=== PATIENT | female | born 1990 | race Caucasian/White ===

== ENCOUNTER 2019-06-02 08:08 | Emergency (ER) | payer BC ==
[2019-06-02] MEDS ORDERED: MEPERIDINE HCL 50 MG/ML AMP ONE (09:09)
[2019-06-02] MEDS ORDERED: ONDANSETRON 4 MG (ODT) TAB ONE (09:09)
--- NOTE | 2019-06-02 09:30 | ER ---
Nurse's Notes [facility] Name: Gem Soto Age: 28 yrs Sex: Female : 1990 Arrival Date: 06/02/2019 Time: 08:10 Bed 16 Private MD: Angella Mcduffie H Diagnosis: Low back pain Presentation: 06/02 08:24 Presenting complaint: Presenting complaint: Patient states: Sudden onset of R low back ss pain that occurred after hearing/ feeling a "pop" during an episode of vomiting. Pt reports she is 30 weeks and 6 days . 08:25 Transition of care: patient was not received from another setting of care. Onset of ss symptoms was June 02, 2019. Risk Assessment: Do you want to hurt yourself or someone else? Patient reports no desire to harm self or others. Initial Sepsis Screen: Does the patient meet any 2 criteria? No. Patient's initial sepsis screen is negative. Does the patient have a suspected source of infection? No. Patient's initial sepsis screen is negative. Care prior to arrival: None. 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 - Social history:: Smoking status: Patient/guardian denies using tobacco. - Ebola Screening: : Patient denies exposure to infectious person Patient denies travel to an Ebola-affected area in the 21 days before illness onset. Screenin:28 Abuse screen: Denies threats or abuse. Nutritional screening: No deficits noted. rb1 Tuberculosis screening: No symptoms or risk factors identified. Fall Risk None identified. Assessment: 08:28 General: Appears uncomfortable, Behavior is calm, cooperative, Denies fever, feeling rb1 ill. Pain: Complains of pain in Low back pain Pain radiates to buttocks Pain currently is 7 out of 10 on a pain scale. Pain began This morning. Pt. was vomiting because she smelled something foul and it made her vomit. Pt. denies being sick. Neuro: Level of Consciousness is awake, alert, obeys commands, Oriented to person, place, time, situation. Cardiovascular: Capillary refill < 3 seconds is brisk in bilateral fingers. Respiratory: Airway is patent Respiratory effort is even, unlabored, Respiratory pattern is regular, symmetrical. GI: No signs and/or symptoms were reported involving the gastrointestinal system. : No signs and/or symptoms were reported regarding the genitourinary system. Derm: Skin is pink, warm \\T\\ dry. Musculoskeletal: Range of motion: intact in all extremities. 09:20 Reassessment: Patient appears in no apparent distress at this time. No changes from rb1 previously documented assessment. at bedside. Vital Signs: 08:27 BP 114 / 87; Pulse 92; Resp 20; Temp 97.9(O); Pulse Ox 100% on R/A; Weight 97.98 kg; ss Height 5 ft. 5 in. (165.10 cm); Pain 9/10; 09:27 BP 112 / 83; Pulse 82; Resp 17; Temp 98.0(O); Pulse Ox 98% on R/A; Pain 5/10; rb1 08:27 Body Mass Index 35.94 (97.98 kg, 165.10 cm) ss ED Course: 08:10 Patient arrived in ED. as 08:11 Angella Mcduffie DO is Private Physician. as 08:26 Triage completed. ss 08:27 Arm band placed on right wrist. ss 08:28 Patient has correct armband on for positive identification. Bed in low position. Call rb1 light in reach. Side rails up X 1. Pulse ox on. NIBP on. 08:29 Sabrina Laguna, JENNIFER is Primary Nurse. rb1 08:29 Star Boone PA is PHCP. jr8 08:29 Aryan Nicole MD is Attending Physician. jr8 09:47 No provider procedures requiring assistance completed. Patient did not have IV access ss during this emergency room visit. Administered Medications: 09:20 Drug: Demerol 50 mg Route: IM; Site: left deltoid; rb1 09:35 Follow up: Response: No adverse reaction rb1 09:20 Drug: Zofran 4 mg Route: PO; rb1 09:35 Follow up: Response: No adverse reaction rb1 Outcome: 09:29 Discharge ordered by MD. mayer 09:49 Discharged to home via wheelchair, with family. rb1 09:49 Condition: good 09:49 Discharge instructions given to patient, Instructed on discharge instructions, follow up and referral plans. Demonstrated understanding of instructions, follow-up care, Prescriptions given X none 09:50 Patient left the ED. rb1 Signatures: Micheline Chairez Shelby, RN RN Star Iyer PA PA jr8 Sabrina Laguna RN RN rb1 Corrections: (The following items were deleted from the chart) 08:26 08:24 Presenting complaint: ss ss
--- NOTE | 2019-06-02 09:31 | EDPHYS ---
Physician Documentation [facility] Name: Gem Soto Age: 28 yrs Sex: Female : 1990 Arrival Date: 06/02/2019 Time: 08:10 Bed 16 Private MD: Angella Mcduffie H ED Physician Aryan Nicole HPI: 06/02 09:04 This 28 yrs old Female presents to ER via Ambulatory with complaints of Back jr8 Pain. 09:04 The patient presents with pain that is acute. The symptoms are located in the low back. jr8 Onset: The symptoms/episode began/occurred acutely, this morning. The pain does not radiate. Associated signs and symptoms: Pertinent negatives: dysuria, incontinence, numbness, tingling, urinary retention. The problem was sustained when bending over. Modifying factors: The patient symptoms are alleviated by remaining still, rest, the patient symptoms are aggravated by any movement. Severity of symptoms: At their worst the symptoms were moderate, in the emergency department the symptoms are unchanged. The patient has not experienced similar symptoms in the past. The patient has not recently seen a physician. Reports feeling a "pop" to lower back this morning while leaned over vomiting. Now low back pain that is generalized across the whole low back and does not radiate, worse with movement. Denies numbness/tingling, incontinence, or urinary s/s.. S[employer] E[employer]MENT [employer]CH[employer]IC: 08:28 LMP 10/02/2018 rb1 09:04 LMP 10/29/2018, Verified, EDC 08/05/2019, Gestational age from LMP: 30 weeks 6 jr8 days Historical: - Allergies: 08:27 No Known Allergies; ss - Home Meds: 08:27 None [Active]; ss - PMHx: 08:27 None; ss - PSHx: 08:27 None; ss - Immunization history:: Adult Immunizations up to date. - Social history:: Smoking status: Patient/guardian denies using tobacco. - Ebola Screening: : Patient denies exposure to infectious person Patient denies travel to an Ebola-affected area in the 21 days before illness onset. ROS: 09:04 Constitutional: Negative for fever, chills, and weight loss, Eyes: Negative for injury, jr8 pain, redness, and discharge, ENT: Negative for injury, pain, and discharge, Neck: Negative for injury, pain, and swelling, Cardiovascular: Negative for chest pain, palpitations, and edema, Respiratory: Negative for shortness of breath, cough, wheezing, and pleuritic chest pain, : Negative for injury, bleeding, discharge, and swelling, MS/Extremity: Negative for injury and deformity, Skin: Negative for injury, rash, and discoloration, Neuro: Negative for headache, weakness, numbness, tingling, and seizure. 09:04 Abdomen/GI: Positive for vomiting, Negative for abdominal pain, diarrhea, hematemesis. 09:04 Back: Positive for pain with movement, Negative for injury or acute deformity, decreased range of motion, radiated pain. Exam: 09:04 Constitutional: This is a well developed, well nourished patient who is awake, alert, jr8 and in no acute distress. Head/Face: Normocephalic, atraumatic. Cardiovascular: Regular rate and rhythm with a normal S1 and S2. No gallops, murmurs, or rubs. Normal PMI, no JVD. No pulse deficits. Respiratory: Lungs have equal breath sounds bilaterally, clear to auscultation and percussion. No rales, rhonchi or wheezes noted. No increased work of breathing, no retractions or nasal flaring. Skin: Warm, dry with normal turgor. Normal color with no rashes, no lesions, and no evidence of cellulitis. MS/ Extremity: Pulses equal, no cyanosis. Neurovascular intact. Full, normal range of motion. Neuro: Awake and alert, GCS 15, oriented to person, place, time, and situation. Motor strength 5/5 in all extremities. Sensory grossly intact. 09:04 Abdomen/GI: Inspection: gravid appearance, is noted. 09:04 Back: Exam negative for decreased ROM, deformity, vertebral tenderness, ROM is painful, normal spinal alignment noted, no deformity, CVA tenderness, is absent. 09:04 Back: No deformities, step offs, or bony tenderness. No sensory or motor deficits to extremities. Vital Signs: 08:27 BP 114 / 87; Pulse 92; Resp 20; Temp 97.9(O); Pulse Ox 100% on R/A; Weight 97.98 kg; ss Height 5 ft. 5 in. (165.10 cm); Pain 9/10; 09:27 BP 112 / 83; Pulse 82; Resp 17; Temp 98.0(O); Pulse Ox 98% on R/A; Pain 5/10; rb1 08:27 Body Mass Index 35.94 (97.98 kg, 165.10 cm) ss MDM: 08:29 Patient medically screened. jr8 09:04 Differential diagnosis: Fracture Joint Injury Ligament Injury Neoplasm Osteoarthritis jr8 Osteoporosis Pyelonephritis ruptured disc, Scoliosis spinal injury, sprain, vertebral fracture. Data reviewed: vital signs, nurses notes, and as a result, I will discharge patient. Data interpreted: Pulse oximetry: on room air is 99 %. Interpretation: normal. Counseling: I had a detailed discussion with the patient and/or guardian regarding: the historical points, exam findings, and any diagnostic results supporting the discharge/admit diagnosis, the need for outpatient follow up, to return to the emergency department if symptoms worsen or persist or if there are any questions or concerns that arise at home. Response to treatment: the patient's symptoms have mildly improved after treatment, and as a result, I will discharge patient. ED course: No need for imaging due to nontraumatic nature of onset, benign history/exam findings, and increased risks associated with radiation in . Patient improved after medication administration. Instructed to rest in position of comfort, use heating pads as tolerated, Tylenol PRN for pain, and f/u with OB if symptoms continue. Return to ED for any numbness/tingling to extremities, incontinence, or other new concerning symptoms. Patient verbalized understanding and is in agreement with plan of care. Administered Medications: 09:20 Drug: Demerol 50 mg Route: IM; Site: left deltoid; rb1 09:35 Follow up: Response: No adverse reaction rb1 09:20 Drug: Zofran 4 mg Route: PO; rb1 09:35 Follow up: Response: No adverse reaction rb1 Disposition: 14:20 Co-signature as Attending Physician, Aryan Nicole MD I agree with the assessment and kdr plan of care. Disposition: 06/02/19 09:29 Discharged to Home. Impression: Low back pain. - Condition is Stable. - Discharge Instructions: Back Pain, Adult, Heat Therapy. - Medication Reconciliation Form, Thank You Letter, Antibiotic Education, Prescription Opioid Use, Work release form form. - Follow up: Private Physician; When: 2 - 3 days; Reason: Recheck today's complaints, Continuance of care, Re-evaluation by your physician. - Problem is new. - Symptoms have improved. Signatures: Aryan Nicole MD MD [facility] Roselia Alex RN RN Star Iyer PA PA jr8 Sabrina Laguna, JENNIFER RN rb1 Corrections: (The following items were deleted from the chart) 09:29 09:04 ED course: No need for imaging due to nontraumatic nature of injury, benign jr8 history/exam findings, and increased risks associated with radiation in . Patient improved after medication administration. Instructed to rest in position of comfort, use heating pads as tolerated, Tylenol PRN for pain, and f/u with OB if symptoms continue. Return to ED for any numbness/tingling to extremities, incontinence, or other new concerning symptoms. Patient verbalized understanding and is in agreement with plan of care. jr8 09:50 09:29 06/02/2019 09:29 Discharged to Home. Impression: Low back pain. Condition is rb1 Stable. Forms are Medication Reconciliation Form, Thank You Letter, Antibiotic Education, Prescription Opioid Use. Follow up: Private Physician; When: 2 - 3 days; Reason: Recheck today's complaints, Continuance of care, Re-evaluation by your physician. Problem is new. Symptoms have improved. jr8
== END 2019-06-02 09:50 | disposition home or self-care (01) ==
LOC: ER 08:08
DX: M54.5 Low back pain (principal)
CPT/HCPCS: 96372; 99283; J2175